=== PATIENT | male | born 1945 | race Hispanic/Latino ===

== ENCOUNTER 2017-03-24 09:46 | Emergency (ER) | payer OTHER ==
[~2017-03-24] VITALS: Ht 167.6 cm; Wt 99.8 kg
[2017-03-24] MEDS ORDERED: LISINOPRIL2.5 M1 PO (12:04)
[2017-03-24] MEDS ORDERED: COMBIGAN EYE DRO5 ML OP (12:05)
--- NOTE | 2017-03-24 12:39 | ED GENERAL ADULT ---
History of Present Illness General Chief Complaint: Lower Extremity Problems Stated Complaint: SWOLLEN LEGS Source: patient, family Exam Limitations: no limitations Allergies Coded Allergies: No Known Allergies (03/24/17) Reconcile Medications Brimonidine Tartrate/Timolol (Combigan Eye Drops) 0.2 %-0.5 % DROPS 1 DRP OP BID EYE (Reported) Lisinopril 2.5 MG TABLET 1 TAB PO DAILY HEART (Reported) Triage Note: 72 YO MALE TO TRIAGE C.O SWELLING TO BILATERAL LOWER LEGS X3-4 DAYS AGO. DENIES CHEST PAIN/SOB. DENIES PAIN TO LEGS. Triage Nurses Notes Reviewed? yes HPI: Mr. Toledo is a 72-year-old gentleman with past medical history of hypertension, Psoriasis, CABG, hyperlipidemia and diabetes who presented to the emergency department on 03/24/2017 complaining of worsening bilateral lower extremity edema. Patient's was present at the time of clinical encounter states that over the last 4 days patient has continued to experience worsening lower extremity edema. He denies any chest pain, shortness of breath, or dyspnea and dyspnea on exertion. Patient does endorse high salt intake. He currently does follow up with a chief controller station Dr.Victor Ross in [place]. (RUBEN JUSTIN,MATTEO) Vital Signs & Intake/Output Vital Signs & Intake/Output Vital Signs Date Time Temp Pulse Resp B/P B/P Pulse O2 O2 Flow FiO2 Mean Ox Delivery Rate 03/24 1401 98.6 85 18 156/84 98 Room Air 03/24 1209 98.7 50 18 173/69 95 03/24 0952 98.7 60 18 140/65 98 Room Air Past History Travel History Traveled to [place] past 21 day No Medical History Any Pertinent Medical History? see below for history Neurological: NONE EENT: NONE Cardiovascular: hypertension, hyperlipidemia Respiratory: NONE Gastrointestinal: NONE Hepatic: NONE Renal: NONE Musculoskeletal: NONE Psychiatric: NONE Endocrine: diabetes Blood Disorders: NONE Cancer(s): NONE Surgical History Surgical History: CABG Psychosocial History What is your primary language Malaysian Tobacco Use: Quit >30 days ago Family History Hx Contributory? Yes (RUBEN JUSTIN,HANDEBBIE) Review of Systems Review of Systems Constitutional: Reports: see HPI. Denies: chills, diaphoresis, fever, malaise, weakness. Cardiovascular: Reports: peripheral edema. Denies: chest pain, edema, orthopena, palpitations, syncope. GI: Denies: abdominal pain, bloating, constipation, diarrhea, distention, melena. Genitourinary: Denies: discharge, dysuria, frequency, hematuria, hesitation. (MATTEO MIRANDA MD) Physical Exam Physical Exam General Appearance: well developed/nourished, no apparent distress, alert, awake Respiratory: normal breath sounds, lungs clear Cardiovascular: regular rate/rhythm Peripheral Pulses: 4+ dorsalis pedis (R), 4+ dorsalis pedis (L) Gastrointestinal: normal bowel sounds, soft, non-tender Extremities: normal inspection, normal capillary refill, normal range of motion, Edema, non pitting, Evidence of Psoriasis left baker. Neurologic/Psych: no motor/sensory deficits, awake, alert, oriented x 3 Core Measures ACS in differential dx? No CVA/TIA Diagnosis: No Severe Sepsis Present: No Septic Shock Present: No (MATTEO MIRANDA MD) Progress Differential Diagnoses I considered the following diagnoses in my evaluation of the patient: CHF, edema due to increased NA intake, Edema due to decreased Movement Initial ED EKG: none (MATTEO MIRANDA MD) Plan of Care: Orders Procedure Date/time Status Consistent Carbohydrate 3 03/24 L Active Departure Departure Disposition: HOME OR SELF CARE Condition: Stable Clinical Impression Primary Impression: Edema Referrals: NIRAJ JUSTIN,SHAHANA Celaya (PCP/Family) Additional Instructions: Please follow-up with your primary care physician within the next 7 days. Please inform your primary care physician of this visit to the emergency department. Follow-up with your chief controller station in the next 48 hours. Should your experience worsening shortness of breath, chest pain, difficulty breathing or palpitations come back to the emergency department immediately. Please avoid excessive salt intake, and keep your legs elevated. Avoid any alcohol. Departure Forms: Customer Survey General Discharge Information (MATTEO MIRANDA MD) Resident Co-Sign Statement Statement: ED Attending supervision documentation- [x] I saw and evaluated the patient. I have also reviewed all the pertinent lab results and diagnostic results. I agree with the findings and the plan of care as documented in the Resident's documentation. [] I have reviewed the ED Record and agree with the Resident's documentation. [] Additions or exceptions (if any) to the Resident's note and plan are summarized below: [] (BECKY JUSTIN,AMISHA D) Critical Care Note Critical Care Note Critical Care Time: non-applicable (RUBEN JUSTIN,MATTEO)
[2017-03-24 14:01] VITALS: BP 156/84
== END 2017-03-24 14:01 ==
LOC: ERH 09:46
DX: R60.9 Edema, unspecified (principal)